=== PATIENT | female | born 1985 | race American Indian/Alaskan Native ===

== ENCOUNTER 2018-07-28 05:58 | Day surgery (SDC) | payer OTHER ==
[2018-07-28 06:32] VITALS: BMI 32.1
[2018-07-28] MEDS ORDERED: Lactated Ringer's 1,000 ML IV ONE (06:54)
[2018-07-28 07:07] LABS: BASO % 0.6 % (0.0-2.0); EOS # 0.1 K/uL (0.0-0.7); EOS % 1.9 % (0.0-4.0); HEMOGLOBIN 12.5 g/dL (12.0-16.0); LYMPH # 1.8 K/uL (1.0-4.3); LYMPH % 26.8 % (20.0-40.0); MEAN CELL VOLUME 87.4 fl (81.0-99.0); MEAN CORPUSCULAR HEMOGLOBIN 29.3 pg (27.0-31.0); MEAN CORPUSCULAR HGB CONC 33.5 g/dL (33.0-37.0); MEAN PLATELET VOLUME 7.8 fl (7.2-11.7); MONO # 0.6 K/uL (0.0-0.8); MONO % 9.4 % (0.0-10.0); NEUT # 4.2 K/uL (1.8-7.0); NEUT % 61.3 % (50.0-75.0); RBC 4.28 Mil/uL (3.80-5.20); RED CELL DISTRIBUTION WIDTH 13.6 % (11.5-14.5); WHITE BLOOD COUNT 6.8 K/uL (4.8-10.8)
[2018-07-28] MEDS ORDERED: Oxytocin 10 Units/ml Inj ONE (07:25)
[2018-07-28] MEDS ORDERED: Propofol 10 mg/ml Inj (20 ML) ONE (07:26)
[2018-07-28] MEDS ORDERED: Midazolam 2 MG/2 ML VIAL ONE ×2 (07:27→08:46)
[2018-07-28] MEDS ORDERED: ePHEDrine 50 mg/ml Inj ONE (07:27)
[2018-07-28] MEDS ORDERED: Lidocaine 4% (Laryng-O-Jet) Kit MM ONE (07:29)
[2018-07-28] MEDS ORDERED: Phenylephrine 10 mg/ml Inj ONE (07:31)
[2018-07-28] MEDS ORDERED: Succinylcholine 200 mg/10 ml Inj IV ONE (07:32)
[2018-07-28] MEDS ORDERED: Albuterol HFA 90 mcg/actuation (8 g) ONE (07:53)
[2018-07-28] MEDS ORDERED: Dexamethasone 4 mg/1 ml ONE (08:32)
[2018-07-28] MEDS ORDERED: HYDROmorphone 0.5 mg/0.5 ml ISec IVP PRN (08:55)
[2018-07-28] MEDS ORDERED: Lactated Ringer's 1,000 ML IV SCH (09:00)
[2018-07-28 11:11] VITALS: RESP 18
[2018-07-28 14:28] VITALS: BP 101/60; PULSE 78; TEMP 97.9; O2SAT 98
--- NOTE | 2018-07-28 21:35 | OP ---
PROCEDURE DATE: 07/28/2018 PREOPERATIVE DIAGNOSIS: Missed . POSTOPERATIVE DIAGNOSIS: Missed . PROCEDURE: Dilatation and curettage with suction. SURGEON: Corky Mccray MD TYPE OF ANESTHESIA: General anesthesia. ANESTHESIA ADMINISTERED BY: Dunia Gutierrez MD DESCRIPTION OF PROCEDURE: With the patient in dorsal lithotomy position under general anesthesia, the patient was prepped and draped in the usual sterile manner. A straight catheter was used to empty the bladder after which a single-tooth tenaculum was used grasp the anterior cervix and the cervix was dilated. Afterwards sharp curettage was done and we got [id number] amount of tissue. Bleeding was minimal. The patient tolerated the procedure well and was in satisfactory condition on the way to recovery room. Corky Mccray MD
== END 2018-07-28 15:52 | disposition home or self-care (01) ==
LOC: H.OPSURG 05:58
PROVIDERS: ATTEND Specialist
DX: O02.1 Missed abortion (principal); J45.909 Unspecified asthma, uncomplicated
CPT/HCPCS: 36415; 59820; 85025; 86850; 86900; 88305; J0330; J1100; J1170; J1885; J2001; J2250; J2370; J2405; J2704; J3010; J7120